=== PATIENT | female | born 1980 ===

== ENCOUNTER 2016-11-13 07:08 | Emergency (ER) | payer OTHER ==
[2016-11-13 07:20] VITALS: BP 120/70; PULSE 114; TEMP 100.2; O2SAT 98
[2016-11-13 07:36] VITALS: RESP 18
[2016-11-13] MEDS ORDERED: Sodium Chloride 0.9% 1,000 ML IV ONE (08:30)
--- NOTE | 2016-11-13 08:32 | ED PDOC ---
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 denies: Sputum, Neck Pain, Myalgias, Nasal Congestion, Nausea, Vomiting, Diarrhea Ear Symptoms: Bilateral: None Severity: Mild Additional History Per: Patient Additional Complaint(s): c/o sore throat, fever, bodyaches, chills since last night. Past Medical History Reviewed: Historical Data, Nursing Documentation, Vital Signs Vital Signs: Last Vital Signs Temp 100.2 F H 11/13/16 08:53 Pulse 114 H 11/13/16 07:33 Resp 18 11/13/16 07:33 BP 120/70 11/13/16 07:33 Pulse Ox 98 11/13/16 08:38 - Surgical History Surgical History: - Family History Family History: States: Unknown Family Hx - Home Medications Home Medications: Ambulatory Orders Medication Instructions Recorded Cephalexin [Keflex] 500 mg PO BID PRN #30 capsule 11/13/16 - Allergies Allergies/Adverse Reactions: Allergies Allergy/AdvReac Type Severity Reaction Status Date / Time No Known Allergies Allergy Verified 01/15/15 23:53 Review of Systems ROS Statement: Except As Marked, All Systems Reviewed And Found Negative Constitutional: Positive for: Chills ENT: Negative for: Ear Pain Cardiovascular: Negative for: Chest Pain, Palpitations Respiratory: Positive for: Cough. Negative for: Shortness of Breath, SOB with Exertion, Sputum Gastrointestinal: Negative for: Nausea, Vomiting, Abdominal Pain, Diarrhea Genitourinary Female: Negative for: Dysuria Skin: Negative for: Rash Neurological: Negative for: Weakness, Numbness, Headache Physical Exam - Reviewed Nursing Documentation Reviewed: Yes Vital Signs Reviewed: Yes - Physical Exam Appears: Positive for: Uncomfortable Head Exam: Positive for: ATRAUMATIC, NORMAL INSPECTION, NORMOCEPHALIC Skin: Positive for: Normal Color, Warm, Dry. Negative for: Rash Eye Exam: Positive for: Normal appearance, EOMI, PERRL ENT: Positive for: Pharynx Is (clear), TM Is/Are (nml bl), Pharyngeal Erythema, Tonsillar Swelling. Negative for: Tonsillar Exudate Neck: Positive for: Normal, Painless ROM, Supple. Negative for: Decreased ROM, Limited ROM, Trachea Midline, Pain On Movement Of Neck Cardiovascular/Chest: Positive for: Chest Non Tender, Tachycardia. Negative for : Edema, Gallop, Murmur, Bradycardia, Irregularly Irregular Respiratory: Positive for: Normal Breath Sounds. Negative for: Decreased Breath Sounds, Accessory Muscle Use, Crackles, Rales, Rhonchi, Stridor, Wheezing , Respiratory Distress Pulses-Radial (L): 2+ Pulses-Radial (R): 2+ Gastrointestinal/Abdominal: Positive for: Normal Exam, Bowel Sounds, Soft. Negative for: Tenderness Back: Positive for: Normal Inspection. Negative for: L CVA Tenderness, R CVA Tenderness Extremity: Positive for: Normal ROM. 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 Negative for: Motor/Sensory Deficits - Laboratory Results Result Diagrams: 11/13/16 08:53 11/13/16 08:53 - ECG O2 Sat by Pulse Oximetry: 98 Pulse Ox Interpretation: Normal - Radiology X-Ray: Interpreted by Me X-Ray Interpretation: No Acute Disease - Progress ED Course And Treament: sx improved with fluids and antiobitcs advise close f/u with pmd or med clinic Re-evaluation Time: 09:10 Condition: Improved Disposition - Clinical Impression Clinical Impression: Strep throat - Patient ED Disposition Is Patient to be Admitted: No Counseled Patient/Family Regarding: Studies Performed, Diagnosis, Need For Followup - Disposition Referrals: [facility] [Outside] Disposition: Routine/Home Disposition Time: 10:15 Condition: GOOD Prescriptions: Cephalexin [Keflex] 500 mg PO BID PRN #30 capsule PRN Reason: Pain, Moderate (4-7) Instructions: Strep Throat (ED)
[2016-11-13 09:03] LABS: BASO % 0.3 % (0.0-2.0); HEMOGLOBIN 12.6 g/dL (12.0-16.0); LYMPH # 0.9 K/uL (1.0-4.3); LYMPH % 6.9 % (20.0-40.0); MEAN CELL VOLUME 89.8 fl (81.0-99.0); MEAN CORPUSCULAR HGB CONC 33.4 g/dL (33.0-37.0); MONO # 0.6 K/uL (0.0-0.8); MONO % 4.7 % (0.0-10.0); NEUT # 11.7 K/uL (1.8-7.0); NEUT % 88.1 % (50.0-75.0); PLATELET COUNT 268 K/uL (130-400); RBC 4.22 Mil/uL (3.80-5.20); RED CELL DISTRIBUTION WIDTH 13.6 % (11.5-14.5); WHITE BLOOD COUNT 13.3 K/uL (4.8-10.8)
[2016-11-13 09:21] LABS: ALB/GLOB RATIO 1.5 (1.0-2.1); ALBUMIN 4.4 g/dL (3.5-5.0); ALT/SGPT 37 U/L (9-52); AST/SGOT 24 U/L (14-36); BLOOD UREA NITROGEN 9 mg/dl (7-17); GFR AFRICAN-AMERICAN > 60; GFR NON-AFRICAN AMERICAN > 60
[2016-11-13 09:25] LABS: SQUAMOUS EPITHIAL 2 /hpf (0-5); URINE AMORPHOUS SEDIMENT RARE /ul (<OCC); URINE BILIRUBIN NEGATIVE (NEGATIVE); URINE BLOOD SMALL (NEGATIVE); URINE CLARITY SLIGHTY-CLOUDY (Clear); URINE COLOR YELLOW (YELLOW); URINE GLUCOSE (UA) 50 mg/dL (Normal); URINE LEUKOCYTE ESTERASE NEG Leu/uL (Negative); URINE NITRATE NEGATIVE (NEGATIVE); URINE PROTEIN NEGATIVE (NEGATIVE); URINE UROBILINOGEN 0.2-1.0 mg/dL (0.2-1.0)
--- NOTE | 2016-11-13 09:51 | RAD ---
HISTORY: Cough COMPARISON: No prior. TECHNIQUE: Chest PA and lateral FINDINGS: LUNGS: The lungs are well inflated and clear. PLEURA: No significant pleural effusion identified. No pneumothorax apparent. CARDIOVASCULAR: Normal. OSSEOUS STRUCTURES: No significant abnormalities. VISUALIZED UPPER ABDOMEN: Normal. OTHER FINDINGS: None. IMPRESSION: No active pulmonary disease.
[2016-11-13] MEDS ORDERED: Dexamethasone 4 MG in Sodium Chloride 0.9% 50 ML IV ONE (10:30)
[2016-11-13 11:50] LABS: LYMPHOCYTE 8 % (20-50); MONOCYTE 6 % (0-10); NEUTROPHIL 86 % (42-75); PLATELET ESTIMATE NORMAL (NORMAL); TOTAL CELLS COUNTED 100
[2016-11-13 11:51] LABS: ANISOCYTOSIS SLIGHT; LARGE PLATELETS PRESENT
--- NOTE | 2016-11-19 06:32 | CARD ---
APPROVED REPORT EKG Measurement Heart [id number] <Conclusion> Normal sinus rhythm Normal ECG
== END 2016-11-13 10:49 | disposition home or self-care (01) ==
LOC: H.ER 07:08
DX: J02.0 Streptococcal pharyngitis (principal); R50.9 Fever, unspecified

== ENCOUNTER 2016-12-09 15:36 | Emergency (ER) | payer SELFPAY ==
[2016-12-09 15:42] VITALS: BP 110/71; PULSE 92; RESP 18; TEMP 98; O2SAT 100
--- NOTE | 2016-12-09 16:42 | ED PDOC ---
HPI: Female Pain Time Seen by Provider: 12/09/16 16:05 Chief Complaint (Nursing): Female Genitourinary Chief Complaint (Provider): Back pain and dysuria History Per: Patient History/Exam Limitations: no limitations Onset/Duration Of Symptoms: Days (1 week) Associated Symptoms: Urinary Symptoms. denies: Fever, Nausea, Vomiting Additional Complaint(s): Patient is a 36 year old female with no past medical history who presents to the emergency department for bilateral flank pain radiating to the front x1 week with associated dysuria. Of note, reports constant pelvic pressure since a miscarriage 6 months ago. Denies fever, nausea, and vomiting. PCP: none provided. Past Medical History Reviewed: Historical Data, Nursing Documentation, Vital Signs Vital Signs: Last Vital Signs Temp 98 F 12/09/16 15:38 Pulse 92 H 12/09/16 15:38 Resp 18 12/09/16 15:38 BP 110/71 12/09/16 15:38 Pulse Ox 100 12/09/16 15:38 - Medical History PMH: No Chronic Diseases - Surgical History Surgical History: - Family History Family History: States: Unknown Family Hx - Home Medications Home Medications: Ambulatory Orders Medication Instructions Recorded Cephalexin [Keflex] 500 mg PO BID PRN #30 capsule 11/13/16 Ciprofloxacin HCl [Cipro] 500 mg PO BID #20 tab 12/09/16 Naproxen [Naprosyn] 500 mg PO Q12H #20 tab 12/09/16 Tamsulosin [Flomax] 0.4 mg PO DAILY #5 cap 12/09/16 - Allergies Allergies/Adverse Reactions: Allergies Allergy/AdvReac Type Severity Reaction Status Date / Time No Known Allergies Allergy Verified 01/15/15 23:53 Review of Systems ROS Statement: Except As Marked, All Systems Reviewed And Found Negative Constitutional: Negative for: Fever Gastrointestinal: Negative for: Nausea, Vomiting Genitourinary Female: Positive for: Dysuria Musculoskeletal: Positive for: Back Pain (Bilateral flank pain that radiates to the front) Physical Exam - Reviewed Nursing Documentation Reviewed: Yes Vital Signs Reviewed: Yes - Physical Exam Appears: Positive for: Well, Non-toxic, No Acute Distress Head Exam: Positive for: ATRAUMATIC, NORMAL INSPECTION, NORMOCEPHALIC Skin: Positive for: Normal Color, Warm, Dry Eye Exam: Positive for: Normal appearance, EOMI, PERRL Neck: Positive for: Normal, Supple Cardiovascular/Chest: Positive for: Regular Rate, Rhythm. Negative for: Murmur Respiratory: Positive for: Normal Breath Sounds. Negative for: Accessory Muscle Use, Respiratory Distress Gastrointestinal/Abdominal: Positive for: Tenderness (Suprapubic tenderness). Negative for: Normal Exam, Mass Pelvic Exam: Positive for: External Exam Normal (Performed with system integration engineer Tiff present). Negative for: No Masses, Active Bleeding, Discharge, Other ( Tenderness) Back: Positive for: Normal Inspection. Negative for: L CVA Tenderness, R CVA Tenderness Neurologic/Psych: Positive for: Alert, Oriented - ECG O2 Sat by Pulse Oximetry: 100 (RA) Pulse Ox Interpretation: Normal Medical Decision Making Medical Decision Making: Time: 16:25 Initial impression: Back pain with associated dysuria Initial plan: * Abdominal/Pelvis CT scan * Urine Dipstick * Urine * Urine culture * Reevaluation Scribe Attestation: Documented by Andria Vega, acting as a scribe for Serge Hall MD. Provider Scribe Attestation: All medical record entries made by the Scribe were at my direction and personally dictated by me. I have reviewed the chart and agree that the record accurately reflects my personal performance of the history, physical exam, medical decision making, and the department course for this patient. I have also personally directed, reviewed, and agree with the discharge instructions and disposition. Disposition - Clinical Impression Clinical Impression: Urinary tract infection, Kidney stone, Gallstone - Patient ED Disposition Is Patient to be Admitted: No Counseled Patient/Family Regarding: Studies Performed, Diagnosis, Need For Followup, Rx Given - Disposition Referrals: Shaw Garner MD [Medical Doctor] - [facility] [Outside] Disposition: Routine/Home Disposition Time: 17:13 Condition: FAIR Prescriptions: Ciprofloxacin HCl [Cipro] 500 mg PO BID #20 tab Naproxen [Naprosyn] 500 mg PO Q12H #20 tab Tamsulosin [Flomax] 0.4 mg PO DAILY #5 cap Instructions: Kidney Stones (ED), Urinary Tract Infection in Women (ED) Forms: [facility] ([place] Citizen) Print Language: DANISH
--- NOTE | 2016-12-09 17:12 | CT ---
PROCEDURE: CT Abdomen and Pelvis without intravenous contrast HISTORY: r/o kidney stone COMPARISON: Prior abdomen pelvis CT exam dated 12/21/2015. TECHNIQUE: Technique. Contrast Dose: None Radiation dose: Total exam DLP = 622 mGy-cm. This CT exam was performed using one or more of the following dose reduction techniques: Automated exposure control, adjustment of the mA and/or kV according to patient size, and/or use of iterative reconstruction technique. FINDINGS: LOWER THORAX: Unremarkable. LIVER: Unremarkable. No gross lesion or ductal dilatation. GALLBLADDER AND BILE DUCTS: Cholelithiasis is again identified. No prominent biliary tree dilatation however the lack of intravenous contrast limits interpretation. PANCREAS: Unremarkable. No gross lesion or ductal dilatation. SPLEEN: Unremarkable. ADRENALS: Unremarkable. No mass. KIDNEYS AND URETERS: Small cyst is seen exophytic off the upper pole right kidney likely slightly larger in size anal but limited evaluation due to lack of intravenous contrast. Infrequent punctate intrarenal calculi are scattered in the intrarenal bilateral kidneys however there is no definite hydronephrosis. Nevertheless, the right ureter appears somewhat prominent without radiodense urolithiasis appreciated. Consider possible expelled calculus or lucent distal right ureteral calculus. A distal right ureteral stricture is not excluded as well as other etiologies. Contrast CT may be helpful including delayed imaging. No left-sided obstructive uropathy. VASCULATURE: Unremarkable. No aortic aneurysm. BOWEL: The stomach is distended with retained food. Moderate fecal loading is seen throughout the large bowel with the small bowel unremarkable as imaged. No obstruction. No gross mural thickening. APPENDIX: Unremarkable. Normal appendix. PERITONEUM: Unremarkable. No free fluid. No free air. LYMPH NODES: Unremarkable. No enlarged lymph nodes. BLADDER: Distended but otherwise unremarkable with no radiodense urolithiasis associated. . REPRODUCTIVE: 2.9 cm left adnexal cyst with the right adnexal compartment grossly nonfocal as imaged. . BONES: No acute fracture. OTHER FINDINGS: None. IMPRESSION: 1. Mild right hydroureter is appreciated without right hydronephrosis which may reflect expelled obstructing distal right ureteral calculus at this time though none is appreciable in urinary bladder. Infrequent punctate intrarenal calculi are identified in both kidneys. No left-sided obstructive uropathy. Consider potential lucent distal right ureteral calculus or distal right ureteral stricture. Contrast CT may be useful for further characterization if clinically warranted including delayed imaging. Further clinical correlation is advised. 2. Cholelithiasis. 3. 2.9 cm left adnexal cyst. Consider follow-up pelvic ultrasound.
== END 2016-12-09 17:41 | disposition home or self-care (01) ==
LOC: H.ER 15:36
DX: N39.0 Urinary tract infection, site not specified (principal); N20.0 Calculus of kidney

== ENCOUNTER 2017-06-09 14:59 | Emergency (ER) | payer SELFPAY ==
[2017-06-09 15:57] VITALS: BP 118/65; PULSE 75; RESP 16; TEMP 98.4; O2SAT 100
== END 2017-06-09 17:35 | disposition left against medical advice (07) ==
LOC: H.ER 14:59
DX: Z02.89 Encounter for other administrative examinations (principal)

== ENCOUNTER 2018-01-25 16:16 | Emergency (ER) | payer OTHER ==
[2018-01-25 16:36] VITALS: RESP 18; O2SAT 100
--- NOTE | 2018-01-25 18:28 | ED PDOC ---
HPI: Abdomen Time Seen by Provider: 01/25/18 16:26 Chief Complaint (Nursing): Abdominal Pain Chief Complaint (Provider): Suprapubic pain, dysuria History Per: Patient History/Exam Limitations: no limitations Onset/Duration Of Symptoms: Days Outside of [place] travel?: No Current Symptoms Are (Timing): Still Present Additional Complaint(s): 37 yo female with no medical problems presents for evaluation of suprapubic pain , equal on both sides and burning on urination x 3 days. No back pain. No fever/ chills. No N/V/D. No similar in the past. No vaginal discharge. Past Medical History Reviewed: Historical Data, Nursing Documentation, Vital Signs Vital Signs: Last Vital Signs Temp 99.3 F 01/25/18 16:34 Pulse 98 H 01/25/18 16:34 Resp 18 01/25/18 16:34 BP 108/71 01/25/18 16:34 Pulse Ox 100 01/25/18 16:34 - Medical History PMH: No Chronic Diseases - Surgical History Surgical History: - Family History Family History: States: Unknown Family Hx - Living Arrangements Living Arrangements: With Family - Social History Current smoker - smoking cessation education provided: No - Home Medications Home Medications: Ambulatory Orders Medication Instructions Recorded Cephalexin [Keflex] 500 mg PO BID PRN #30 capsule 11/13/16 Ciprofloxacin HCl [Cipro] 500 mg PO BID #20 tab 12/09/16 Naproxen [Naprosyn] 500 mg PO Q12H #20 tab 12/09/16 Tamsulosin [Flomax] 0.4 mg PO DAILY #5 cap 12/09/16 Ciprofloxacin [Cipro] 500 mg PO BID #10 tab 01/25/18 - Allergies Allergies/Adverse Reactions: Allergies Allergy/AdvReac Type Severity Reaction Status Date / Time No Known Allergies Allergy Verified 01/25/18 16:34 Review of Systems ROS Statement: Except As Marked, All Systems Reviewed And Found Negative Constitutional: Negative for: Fever, Chills Respiratory: Negative for: Cough, Shortness of Breath Gastrointestinal: Positive for: Abdominal Pain. Negative for: Nausea, Vomiting , Diarrhea Genitourinary Female: Positive for: Dysuria Musculoskeletal: Negative for: Back Pain Neurological: Negative for: Headache, Dizziness Physical Exam - Reviewed Nursing Documentation Reviewed: Yes Vital Signs Reviewed: Yes - Physical Exam Appears: Positive for: Well, Non-toxic, No Acute Distress Head Exam: Positive for: ATRAUMATIC, NORMAL INSPECTION, NORMOCEPHALIC Skin: Positive for: Normal Color, Warm, DRY Eye Exam: Positive for: Normal appearance ENT: Positive for: Normal ENT Inspection Neck: Positive for: Normal, Painless ROM Cardiovascular/Chest: Positive for: Regular Rate, Rhythm Respiratory: Positive for: Normal Breath Sounds. Negative for: Accessory Muscle Use, Respiratory Distress Gastrointestinal/Abdominal: Positive for: Normal Exam. Negative for: Tenderness , Guarding, Rebound Back: Positive for: Normal Inspection Extremity: Positive for: Normal ROM Neurologic/Psych: Positive for: Alert, Oriented - ECG O2 Sat by Pulse Oximetry: 100 Disposition - Clinical Impression Clinical Impression: UTI (urinary tract infection) - Patient ED Disposition Is Patient to be Admitted: No Counseled Patient/Family Regarding: Diagnosis, Need For Followup, Rx Given - Disposition Referrals: [facility] [Outside] Disposition: Routine/Home Disposition Time: 18:34 Condition: STABLE Prescriptions: Ciprofloxacin [Cipro] 500 mg PO BID #10 tab Instructions: Urinary Tract Infections in Adults Print Language: [place]WAITI - POA Present On Arrival: None
[2018-01-25 18:52] VITALS: BP 110/60; PULSE 80; TEMP 99
== END 2018-01-25 18:51 | disposition home or self-care (01) ==
LOC: H.ER 16:16
DX: N39.0 Urinary tract infection, site not specified (principal)

== ENCOUNTER 2018-01-31 02:56 | Emergency (ER) | payer OTHER ==
[2018-01-31 03:11] VITALS: O2SAT 100
[2018-01-31] MEDS ORDERED: Simethicone 80 mg Chewtab PO STA (03:23)
--- NOTE | 2018-01-31 03:23 | ED PDOC ---
"HPI: Abdomen Time Seen by Provider: 01/31/18 03:07 Chief Complaint (Nursing): Abdominal Pain History Per: Patient History/Exam Limitations: no limitations Onset/Duration Of Symptoms: Hrs Current Symptoms Are (Timing): Still Present Location Of Pain/Discomfort: Diffuse Quality Of Discomfort: Pressure Associated Symptoms: Nausea, Back Pain. denies: Fever, Chills, Vomiting, Diarrhea, Loss Of Appetite, Chest Pain, Constipation, Urinary Symptoms Exacerbating Factors: Movement Additional Complaint(s): No PMHx presenting with R sided back pain, diffuse abdominal pain. States pain has been constant since 11PM last night, started out mild but has progressed and worsened since then. States the pain is pressure-like. No urinary symptoms , had recent normal BM. No fevers. States nausea but cannot vomit. States she can't find a comfortable position to lie in. Abnormal Vaginal Bleeding: No Past Medical History Reviewed: Historical Data, Nursing Documentation, Vital Signs Vital Signs: Last Vital Signs Temp 98.6 F 01/31/18 03:02 Pulse 77 01/31/18 03:02 Resp 18 01/31/18 03:02 BP 115/77 01/31/18 03:02 Pulse Ox 100 01/31/18 03:28 - Medical History PMH: No Chronic Diseases - Surgical History Surgical History: - Family History Family History: States: Unknown Family Hx - Home Medications Home Medications: Ambulatory Orders Medication Instructions Recorded Cephalexin [Keflex] 500 mg PO BID PRN #30 capsule 11/13/16 Ciprofloxacin HCl [Cipro] 500 mg PO BID #20 tab 12/09/16 Naproxen [Naprosyn] 500 mg PO Q12H #20 tab 12/09/16 Tamsulosin [Flomax] 0.4 mg PO DAILY #5 cap 12/09/16 Ciprofloxacin [Cipro] 500 mg PO BID #10 tab 01/25/18 Docusate Sodium [Dulcolax Stool 100 mg PO DAILY #12 capsule 01/31/18 Softener] Ibuprofen [Motrin Tab] 600 mg PO Q6 #30 tab 01/31/18 - Allergies Allergies/Adverse Reactions: Allergies Allergy/AdvReac Type Severity Reaction Status Date / Time No Known Allergies Allergy Verified 01/31/18 03:01 Review of Systems ROS Statement: Except As Marked, All Systems Reviewed And Found Negative Gastrointestinal: Positive for: Nausea, Abdominal Pain. Negative for: Vomiting Musculoskeletal: Positive for: Back Pain Physical Exam - Reviewed Nursing Documentation Reviewed: Yes Vital Signs Reviewed: Yes - Physical Exam Appears: Positive for: Well, Non-toxic, No Acute Distress Head Exam: Positive for: ATRAUMATIC, NORMAL INSPECTION, NORMOCEPHALIC Skin: Positive for: Normal Color, Warm, DRY Eye Exam: Positive for: EOMI, Normal appearance, PERRL ENT: Positive for: Normal ENT Inspection Neck: Positive for: Normal, Painless ROM Cardiovascular/Chest: Positive for: Regular Rate, Rhythm Respiratory: Positive for: CNT, Normal Breath Sounds Gastrointestinal/Abdominal: Positive for: Normal Exam, Soft, Tenderness ( Epigastric, RUQ, LUQ, LLQ tenderness) Back: Positive for: Normal Inspection. Negative for: L CVA Tenderness, R CVA Tenderness, Vertebral Tenderness Extremity: Positive for: Normal ROM Neurologic/Psych: Positive for: Alert, Oriented - Laboratory Results Result Diagrams: 01/31/18 03:50 01/31/18 03:50 - ECG O2 Sat by Pulse Oximetry: 100 Pulse Ox Interpretation: Normal Medical Decision Making Medical Decision MakinAM Patient presenting with with back pain, abdominal pain --Uncomfortable appearing, but normal vitals --DDx: gas, constipation, diverticulitis --Will get labs, CT, medication, and re-eval 545AM EXAM: CT Abdomen and Pelvis With Intravenous Contrast CLINICAL HISTORY: 37 years old, female; Pain; Abdominal pain; Flank; Right; Prior surgery; Surgery date: 6+ months; Surgery type: ; Additional info: Diffuse abd pain, r flank pain TECHNIQUE: Axial computed tomography images of the abdomen and pelvis with intravenous contrast. All CT scans at this facility use at least one of these dose optimization techniques: automated exposure control; mA and/or kV adjustment per patient size (includes targeted exams where dose is matched to clinical indication); or iterative reconstruction. Coronal and sagittal reformatted images were created and reviewed. CONTRAST: 90 mL of [id number] was administered intravenously. COMPARISON: CT - ABD PELVIS W/O PO OR IV CONT 12/09/2016 4:27 PM FINDINGS: Lung bases: Unremarkable. No mass. No consolidation. ABDOMEN: Liver: Unremarkable. No mass. Gallbladder and bile ducts: Gallstone in the gallbladder neck. Gallbladder is otherwise unremarkable. No ductal dilation. Pancreas: Unremarkable. No mass. No ductal dilation. Spleen: Unremarkable. No splenomegaly. Adrenals: Unremarkable. No mass. Kidneys and ureters: Nonobstructing stones in each kidney. No stones in either ureter and no hydronephrosis. Stomach and bowel: Mild fecal retention in the colon and distal ileum consistent with constipation. No obstruction. No mucosal thickening. PELVIS: Appendix: The appendix is not seen. Bladder: Unremarkable. No mass. Reproductive: Unremarkable as visualized. ABDOMEN and PELVIS: Intraperitoneal space: Unremarkable. No free air. No significant fluid collection. Bones/joints: No fracture. No dislocation. Soft tissues: Unremarkable. GAURI PACHECO | Preliminary Radiology Report STORE CUSTODIAN (QA) DISCREPANCY? If there is a discrepancy between the preliminary and final interpretation, please notify [facility] via [email or web address]. If you do not have access to our QA portal, call our QA team at [phone] CONFIDENTIALITY STATEMENT This report is intended only for the use of the referring physician, and only in accordance with law, If you received this in error, call [phone] Page 2 of 2 Vasculature: Unremarkable. No abdominal aortic aneurysm. Lymph nodes: Unremarkable. No enlarged lymph nodes. IMPRESSION: 1. Gallstone in the gallbladder neck. Gallbladder is otherwise unremarkable. 2. Nonobstructing stones in each kidney. No stones in either ureter and no hydronephrosis. 3. Mild fecal retention in the colon and distal ileum consistent with constipation. Thank you for allowing us to participate in the care of your patient. Dictated and Authenticated by: Damon Comer MD 01/31/2018 5:23 AM Eastern Time ([place] & [place]) --Patient feeling better. Informed of results. Advised diet modification and stool softeners. Advised to followup with PMD regarding gallstones, currently non-acute finding. Well appearing, tolerating PO, normal vitals upon discharge. Disposition - Clinical Impression Clinical Impression: Constipation, Gallstones - Patient ED Disposition Is Patient to be Admitted: No - Disposition Referrals: Basim Novak MD [Primary Care Provider] - Disposition: Routine/Home Disposition Time: 05:47 Condition: IMPROVED Prescriptions: Docusate Sodium [Dulcolax Stool Softener] 100 mg PO DAILY #12 capsule Ibuprofen [Motrin Tab] 600 mg PO Q6 #30 tab Instructions: Gallstones, Constipation in Adults Forms: [facility] ([place]ic) Print Language: [place]"
[2018-01-31 04:14] LABS: BASO # 0.1 K/uL (0.0-0.2); BASO % 0.7 % (0.0-2.0); EOS # 0.1 K/uL (0.0-0.7); EOS % 1.3 % (0.0-4.0); LYMPH # 2.9 K/uL (1.0-4.3); LYMPH % 25.8 % (20.0-40.0); MEAN CELL VOLUME 89.9 fl (81.0-99.0); MEAN CORPUSCULAR HEMOGLOBIN 30.7 pg (27.0-31.0); MEAN CORPUSCULAR HGB CONC 34.2 g/dL (33.0-37.0); MEAN PLATELET VOLUME 10.8 fl (7.2-11.7); MONO # 0.7 K/uL (0.0-0.8); MONO % 5.9 % (0.0-10.0); NEUT # 7.5 K/uL (1.8-7.0); NEUT % 66.3 % (50.0-75.0); RBC 4.23 Mil/uL (3.80-5.20); RED CELL DISTRIBUTION WIDTH 14.2 % (11.5-14.5); WHITE BLOOD COUNT 11.3 K/uL (4.8-10.8)
[2018-01-31 04:22] LABS: BLOOD UREA NITROGEN 14 mg/dl (7-17); CALCIUM 8.7 mg/dL (8.4-10.2); GFR NON-AFRICAN AMERICAN > 60; LIPASE 293 U/L (23-300)
[2018-01-31 04:27] LABS: ALB/GLOB RATIO 1.2 (1.0-2.1); ALT/SGPT 34 U/L (9-52); AST/SGOT 35 U/L (14-36)
[2018-01-31] MEDS ORDERED: Iohexol 300 100 ML IJ ONE (04:46)
[2018-01-31] MEDS ORDERED: Sodium Chloride 0.9% 50 ML IV ONE (04:46)
[2018-01-31 05:14] LABS: SQUAMOUS EPITHIAL 1 /hpf (0-5); URINE BACTERIA RARE (<OCC); URINE BILIRUBIN NEGATIVE (NEGATIVE); URINE BLOOD NEGATIVE (NEGATIVE); URINE CLARITY SLIGHTY-CLOUDY (Clear); URINE COLOR YELLOW (YELLOW); URINE GLUCOSE (UA) >=500 mg/dL (Normal); URINE LEUKOCYTE ESTERASE NEG Leu/uL (Negative); URINE PROTEIN NEGATIVE (NEGATIVE); URINE UROBILINOGEN 0.2-1.0 mg/dL (0.2-1.0)
[2018-01-31 06:28] VITALS: BP 97/58; PULSE 82; RESP 17; TEMP 99.2
--- NOTE | 2018-01-31 10:39 | CT ---
Date of service: 01/31/2018 PROCEDURE: CT Abdomen and Pelvis with contrast HISTORY: diffuse abd pain, R flank pain COMPARISON: Abdomen pelvis CT without contrast 12/09/2016. TECHNIQUE: Following the intravenous administration of iodinated contrast material, a CT examination of the abdomen and pelvis performed from the domes of the diaphragms to the symphysis pubis with reformatted datasets provided in axial, sagittal and coronal planes. Oral contrast was not administered as per referring physician request. Coronal and sagittal reformats were generated. Contrast dose: Omnipaque 300, 90 cc Radiation dose: Total exam DLP = 432.94 mGy-cm. This CT exam was performed using one or more of the following dose reduction techniques: Automated exposure control, adjustment of the mA and/or kV according to patient size, and/or use of iterative reconstruction technique. FINDINGS: LOWER THORAX: Unremarkable. LIVER: A lucency near the dome liver toward the left, too small to characterize. GALLBLADDER AND BILE DUCTS: Gallbladder is rather distended with large calculus identified at the neck measuring 2.4 cm greatest dimension. Impaction not excluded here. No pericholecystic fluid however or mural thickening. PANCREAS: Unremarkable. No gross lesion or ductal dilatation. SPLEEN: Unremarkable. ADRENALS: Unremarkable. No mass. KIDNEYS AND URETERS: Stable small simple cyst exophytic off the upper pole right kidney. Multiple intrarenal calculi identified greater the left and right kidney including an intrarenal calculus at the lower pole left kidney measuring 1 cm once again. No obstructive uropathy bilaterally. VASCULATURE: Unremarkable. No aortic aneurysm. BOWEL: Stomach distended with retained oral contrast material is otherwise grossly unremarkable appearing. Moderate retained fecal material seen throughout the large bowel suspicious for potential limited constipation. Clinically correlate further. No acute pericolic or perienteric reactive changes are identified. APPENDIX: Normal appendix. PERITONEUM: Unremarkable. No free fluid. No free air. LYMPH NODES: Unremarkable. No enlarged lymph nodes. BLADDER: Unremarkable. REPRODUCTIVE: Limited left adnexal fluid is appreciated with crenating follicle also identified measure 1.8 cm. Right adnexal part appears unremarkable. BONES: No acute fracture. OTHER FINDINGS: None. IMPRESSION: 1. Distended gallbladder a gallstone potentially impacted at the neck however no other CT sign of cholecystitis identified. Clinically correlate further. No biliary tree dilatation grossly noted. 2. Tiny lucency at the dome liver too small to characterize. 3. Potential constipation as discussed above. 4. Small cyst stable upper pole right kidney. No obstructive uropathy bilaterally although multiple intrarenal calculi identified left greater than right kidney. 5. Collapsing cyst left adnexal compartment with limited associated fluid collection.
== END 2018-01-31 06:21 | disposition home or self-care (01) ==
LOC: H.ER 02:56
DX: K59.00 Constipation, unspecified (principal); K57.92 Diverticulitis of intestine, part unspecified, without perforation or abscess without bleeding; K80.20 Calculus of gallbladder without cholecystitis without obstruction
CPT/HCPCS: 74177; 80053; 81003; 81025; 83690; 85025; 96374; 96375; 99283; J1885; J2765; Q9967

== ENCOUNTER 2018-09-02 21:02 | Emergency (ER) | payer SELFPAY ==
[2018-09-02 21:16] VITALS: RESP 16; BMI 30.3
[2018-09-02] MEDS ORDERED: Alum-Mag Hydrox-Simethicone Susp (30 mL) PO STA (22:09)
[2018-09-02] MEDS ORDERED: Sodium Chloride 0.9% 1,000 ML IV STA (22:09)
--- NOTE | 2018-09-02 22:26 | ED PDOC ---
HPI: Abdomen Time Seen by Provider: 09/02/18 21:48 Chief Complaint (Nursing): Abdominal Pain Chief Complaint (Provider): LUQ pain History Per: Patient History/Exam Limitations: no limitations Onset/Duration Of Symptoms: Days (5 days but worse today) Location Of Pain/Discomfort: Epigastric, LUQ Associated Symptoms: Nausea, Diarrhea, Loss Of Appetite. denies: Fever, Chills, Vomiting, Constipation, Urinary Symptoms Additional Complaint(s): Tried aloe water with no relief PMD None Past Medical History Reviewed: Historical Data, Nursing Documentation, Vital Signs Vital Signs: Last Vital Signs Temp 98.8 F 09/02/18 21:16 Pulse 80 09/02/18 21:16 Resp 16 09/02/18 21:16 BP 111/74 09/02/18 21:16 Pulse Ox 97 09/02/18 21:16 - Medical History PMH: No Chronic Diseases - Surgical History Surgical History: - Family History Family History: States: Unknown Family Hx - Social History Current smoker - smoking cessation education provided: No Alcohol: None - Home Medications Home Medications: Ambulatory Orders Medication Instructions Recorded Cephalexin [Keflex] 500 mg PO BID PRN #30 capsule 11/13/16 Ciprofloxacin HCl [Cipro] 500 mg PO BID #20 tab 12/09/16 Naproxen [Naprosyn] 500 mg PO Q12H #20 tab 12/09/16 Tamsulosin [Flomax] 0.4 mg PO DAILY #5 cap 12/09/16 Ciprofloxacin [Cipro] 500 mg PO BID #10 tab 01/25/18 Docusate Sodium [Dulcolax Stool 100 mg PO DAILY #12 capsule 01/31/18 Softener] Ibuprofen [Motrin Tab] 600 mg PO Q6 #30 tab 01/31/18 Famotidine [Pepcid] 40 mg PO DAILY PRN #30 tab 09/02/18 Ondansetron ODT [Zofran ODT] 1 odt PO Q6 PRN #20 odt 09/02/18 Dicyclomine [Bentyl] 20 mg PO QID PRN #20 tab 09/03/18 - Allergies Allergies/Adverse Reactions: Allergies Allergy/AdvReac Type Severity Reaction Status Date / Time No Known Allergies Allergy Verified 09/02/18 21:19 Review of Systems ROS Statement: Except As Marked, All Systems Reviewed And Found Negative (and as per HPI) Constitutional: Positive for: Chills Gastrointestinal: Positive for: Nausea, Abdominal Pain, Diarrhea (2 episode over the last 2 days). Negative for: Vomiting, Constipation, Melena, Hematochezia, Hematemesis Genitourinary Female: Negative for: Dysuria, Frequency, Vaginal Discharge, Vaginal Bleeding Physical Exam - Reviewed Nursing Documentation Reviewed: Yes Vital Signs Reviewed: Yes - Physical Exam Appears: Positive for: Non-toxic, No Acute Distress Head Exam: Positive for: ATRAUMATIC, NORMOCEPHALIC Skin: Positive for: Warm, Dry Eye Exam: Positive for: EOMI, PERRL. Negative for: Scleral icterus ENT: Negative for: Pharyngeal Erythema, Tonsillar Exudate Neck: Positive for: Painless ROM, Supple Cardiovascular/Chest: Positive for: Regular Rate, Rhythm. Negative for: Murmur Respiratory: Positive for: Normal Breath Sounds. Negative for: Respiratory Distress Gastrointestinal/Abdominal: Positive for: Soft, Tenderness (LUQ). Negative for: Mass, Distended, Guarding, Rebound Back: Positive for: Normal Inspection. Negative for: L CVA Tenderness, R CVA Tenderness Extremity: Positive for: Normal ROM. Negative for: Deformity Lymphatic: Negative for: Adenopathy Neurological/Psych: Positive for: Awake, Alert. Negative for: Motor/Sensory Deficits - Laboratory Results Result Diagrams: 09/02/18 22:40 09/02/18 22:40 - ECG O2 Sat by Pulse Oximetry: 97 - Progress ED Course And Treament: Labs unremarkable. Pt improved with ER treatment. Stable for discharge Re-evaluation Time: 00:20 Condition: Improved Disposition - Clinical Impression Clinical Impression: Abdominal pain - Disposition Referrals: [facility] [Outside] Disposition: Routine/Home Disposition Time: 00:20 Condition: STABLE Prescriptions: Dicyclomine [Bentyl] 20 mg PO QID PRN #20 tab PRN Reason: abdominal pain Famotidine [Pepcid] 40 mg PO DAILY PRN #30 tab PRN Reason: reflux Ondansetron ODT [Zofran ODT] 1 odt PO Q6 PRN #20 odt PRN Reason: Nausea/Vomiting Instructions: Acute Abdomen (Belly Pain), Adult (DC) Forms: [facility] ED School/Work Excuse Print Language: LAO
[2018-09-02] MEDS ORDERED: Alum-Mag Hydrox-Simethicone Susp (30 mL) ONE (22:32)
[2018-09-02 23:07] LABS: BASO # 0.1 K/uL (0.0-0.2); BASO % 0.7 % (0.0-2.0); EOS # 0.1 K/uL (0.0-0.7); HEMOGLOBIN 13.2 g/dL (12.0-16.0); LYMPH # 2.5 K/uL (1.0-4.3); LYMPH % 23.2 % (20.0-40.0); MEAN CELL VOLUME 87.9 fl (81.0-99.0); MEAN CORPUSCULAR HEMOGLOBIN 29.5 pg (27.0-31.0); MEAN CORPUSCULAR HGB CONC 33.5 g/dL (33.0-37.0); MEAN PLATELET VOLUME 10.2 fl (7.2-11.7); MONO # 0.6 K/uL (0.0-0.8); MONO % 5.2 % (0.0-10.0); NEUT # 7.4 K/uL (1.8-7.0); NEUT % 69.9 % (50.0-75.0); NRBC % 0.1 % (0.0-0.0); RBC 4.48 Mil/uL (3.80-5.20); RED CELL DISTRIBUTION WIDTH 13.6 % (11.5-14.5); WHITE BLOOD COUNT 10.6 K/uL (4.8-10.8)
[2018-09-02 23:11] LABS: SQUAMOUS EPITHIAL 1 /hpf (0-5); URINE BACTERIA OCC (<OCC); URINE BILIRUBIN NEGATIVE (NEGATIVE); URINE CLARITY CLEAR (Clear); URINE COLOR STRAW (YELLOW); URINE GLUCOSE (UA) >=500 mg/dL (NEGATIVE); URINE LEUKOCYTE ESTERASE NEG Leu/uL (Negative); URINE PROTEIN NEGATIVE (NEGATIVE); URINE UROBILINOGEN 0.2-1.0 mg/dL (0.2-1.0)
[2018-09-02 23:15] LABS: ALB/GLOB RATIO 1.5 (1.0-2.1); ALBUMIN 4.7 g/dL (3.5-5.0); ALT/SGPT 109 U/L (9-52); AST/SGOT 46 U/L (14-36); BLOOD UREA NITROGEN 11 mg/dl (7-17); CALCIUM 9.9 mg/dL (8.4-10.2); GFR NON-AFRICAN AMERICAN > 60; LIPASE 137 U/L (23-300)
[2018-09-02 23:19] LABS: URINE BLOOD TRACE (NEGATIVE)
[2018-09-03 01:02] VITALS: BP 120/78; PULSE 72; TEMP 98.7
[2018-09-04 23:42] VITALS: O2SAT 97
== END 2018-09-03 00:45 | disposition home or self-care (01) ==
LOC: H.ER 21:02
DX: R10.9 Unspecified abdominal pain (principal)
CPT/HCPCS: 80053; 81003; 81025; 83690; 85025; 96360; 96374; 99284; J2405; J7030